=== PATIENT | female | born 1950 | race Caucasian/White ===

== ENCOUNTER → 2018-05-21 15:19 | Outpatient (CLI) | payer MEDICARE, SELFPAY ==
--- NOTE | 2018-05-21 15:24 | MM_ITS ---
MM Dig SC mamm unilat LT CAD Ordering Physician: Naresh Goodson Patient Age: 67 years Female COMPARISON: March 2017,. April 2017 left mammogram. HISTORY: Right mastectomy for breast cancer . No new complaints. No hormones. Family history: Noncontributory TECHNIQUE: Routine CC and MLO also axillary cc view which was very helpful FINDINGS: Dense breast tissue bilaterally which does decrease sensitivity mammography. However we compared to multiple previous studies including outside films from 2012 which show a stable overall architecture and pattern with no definite new findings on standard mammogram review . Relative density with question of subtle architectural changes at deep medial left breast cc view however these appear stable since 2014. Also note this area seems to dissipate on today's axillary cc view, and less dense on today's axillary cc view than previous.. Patient has had these regions of previously evaluated diagnostic studies for example April 2017 Patient does warrant ongoing close follow-up with measurement of.. Follow up one year recommended and should be emphasized, encouraged. There has been a previous stereotactic biopsy at the medial inferior right breast. On also note that there is a ultrasound from last year on which was performed and shows no unique findings in these areas of density breast given a long-standing stability follow-up would be adequate IMPRESSION: No new areas of significant concern. Overall stable left breast. Dense left breast tissue decreases sensitivity of mammography, but overall left breast appears shows no significant change. Regions of dense tissue appear unchanged over multiple studies dating back to 2014, thus bilateral follow-up in one year adequate Follow up one year recommended. Annual follow-up as well as self breast examination should be emphasized/encouraged in this patient BI-RADS Category: 2 Benign Finding(s) RECOMMENDED FOLLOW-UP: 1YR 1 YEAR FOLLOW-UP A letter has been sent to the patient regarding results of the study.) .
== END ==
PROVIDERS: Family Provider Internal Medicine; PCP Internal Medicine; Visit Provider Internal Medicine
DX: Z12.31 Encounter for screening mammogram for malignant neoplasm of breast (principal)
CPT/HCPCS: 77067

== ENCOUNTER → 2018-10-11 11:07 | Outpatient (CLI) | payer MEDICARE, SELFPAY ==
--- NOTE | 2018-10-11 11:18 | XR_ITS ---
XR chest 2V HISTORY: ITS.REASON: COUGH,H/O BREAST CA ORDERING PHYSICIAN: Naresh Goodson PATIENT AGE: 68 years COMPARISON: None FINDINGS: The cardiomediastinal silhouette and pulmonary vascularity are within normal limits. The lungs are clear without infiltrates, suspicious nodules, or pleural effusions. There are surgical clips in the right axilla No acute bony abnormalities. IMPRESSION: Negative chest, no acute finding
== END ==
PROVIDERS: PCP Internal Medicine; Visit Provider Internal Medicine
DX: R05 Cough (principal); Z85.3 Personal history of malignant neoplasm of breast
CPT/HCPCS: 71046